=== PATIENT | male | born 1945 | race Caucasian/White ===

== ENCOUNTER 2017-02-22 06:57 | Day surgery (SDC) | payer MEDICARE, OTHER ==
[~2017-02-22] VITALS: Ht 185.4 cm; Wt 109.0 kg
[2017-02-22 07:27] VITALS: BP 133/75; PULSE 76; TEMP 97.5
[2017-02-22] MEDS ORDERED: ZESTRIL 20MG TA20 MG PO (07:44)
[2017-02-22] MEDS ORDERED: ASPIRIN 81M81 MG/TA2 PO (07:45)
[2017-02-22] MEDS ORDERED: VICTOZA6 MG/ML SQ (07:45)
[2017-02-22] MEDS ORDERED: CELEBREX 200MG200 MG PO (07:45)
[2017-02-22] MEDS ORDERED: GLUCOPHAGE500 MG/TAB PO (07:46)
[2017-02-22] MEDS ORDERED: KOMBIGLYZE XR 11 TE1 PO (07:46)
[2017-02-22] MEDS ORDERED: STOOL SOFTENER100 M2 PO (07:47)
[2017-02-22] MEDS ORDERED: PROBIOTIC FORMU1 CAP PO (07:47)
[2017-02-22] MEDS ORDERED: METAMUCIL3.4 GM/DOS PO (07:48)
[2017-02-22] MEDS ORDERED: [UNRECOGNIZED DRUG - OTHER] PO (07:48)
[2017-02-22] MEDS ORDERED: GROUND FLAX SEED PO (07:49)
[2017-02-22] MEDS ORDERED: LEVEMIR100 U/ML SQ (07:50)
[2017-02-22 09:05] VITALS: BP 119/75; PULSE 73; TEMP 97.3
[2017-02-22 09:20] VITALS: BP 118/80; PULSE 70
[2017-02-22 09:35] VITALS: BP 117/74; PULSE 68
[2017-02-22 09:50] VITALS: BP 129/69; PULSE 66
== END 2017-02-22 10:05 | disposition home or self-care (01) ==
LOC: SDCO 06:57
DX: Z86.010 Personal history of colon polyps (principal); K64.0 First degree hemorrhoids
CPT/HCPCS: G0105; OP; J2250; J3010; J7030

== ENCOUNTER → 2018-12-08 | Outpatient (CLI) | payer MEDICARE, OTHER ==
[~2018-12-08] MED LIST: ASPIRIN 81M81 MG/TA2 PO; ASPIRIN E.C. 8181 MG PO; CELEBREX 200MG200 MG PO; GLUCOPHAGE500 MG/TAB PO; GLUCOSAMINE & C1 CA2 PO; GROUND FLAX SEED PO; KOMBIGLYZE; KOMBIGLYZE XR 11 TE1 PO; LEVEMIR100 U/ML SQ; METAMUCIL3.4 GM/DOS PO; PROBIOTIC FORMU1 CAP PO; STOOL SOFTENER100 M2 PO; VICTOZA6 MG/ML SQ; ZESTRIL 20MG TA20 MG PO; [UNRECOGNIZED DRUG - OTHER] PO
== END ==
LOC: SUN.DIA 11-24 10:47
DX: E11.9 Type 2 diabetes mellitus without complications (principal); I10 Essential (primary) hypertension; E66.9 Obesity, unspecified
CPT/HCPCS: G0108

== ENCOUNTER → 2019-01-10 | Outpatient (CLI) | payer MEDICARE, OTHER | LOC: SUN.DIA 11:21 | DX: E11.9 Type 2 diabetes mellitus without complications (principal); I10 Essential (primary) hypertension; E66.9 Obesity, unspecified | CPT/HCPCS: G0108 ==

== ENCOUNTER → 2019-02-14 | Outpatient (CLI) | payer MEDICARE, OTHER | LOC: SUN.DIA 12:35 | DX: E11.9 Type 2 diabetes mellitus without complications (principal); I10 Essential (primary) hypertension; E66.9 Obesity, unspecified | CPT/HCPCS: G0108 ==

== ENCOUNTER 2019-07-01 14:05 | Inpatient (IN) | payer MEDICARE, OTHER ==
[2019-07-01] VITALS (282 sets, daily range): BP systolic 109–123; BP diastolic 68–80; PULSE 91–117; TEMP 97.7–98.1; O2SAT 96–100
[~2019-07-01] VITALS: Ht 185.4 cm; Wt 118.5 kg
[2019-07-01 14:20] LABS: BASO % 0.2 % (0.0-2.0); EOS % 0.2 % (0-4.0); GRAN % 81.3 % (42.2-75.2); HEMOGLOBIN 14.4 g/dl (13.5-18.0); LYMPH # 2.3 (1.2-3.4); LYMPH % 13.6 % (20.0-51.0); MEAN CELL VOLUME 88 fl (80.0-100.0); MEAN CORPUSCULAR HEMOGLOBIN 29 pg (27.0-31.0); MEAN CORPUSCULAR HGB CONC 33 g/dl (33.0-37.0); MEAN PLATELET VOLUME 11.2 fl (7.4-10.4); MONO # 0.5 (0.1-0.6); PLATELET COUNT 389 K/mm3 (130-400); RED BLOOD COUNT 5.01 M/mm3 (4.20-5.60); REDCELL DISTRIBUTION WIDTH-CV 13.1 % (11.5-14.5)
[2019-07-01 14:27] LABS: PROTHROMBIN TIME 11.4 SECONDS (9.7-12.8)
[2019-07-01 14:30] LABS: PARTIAL THROMBOPLASTIN TIME 27.9 SECONDS (26.0-37.0)
[2019-07-01 14:36] LABS: LYMPHOCYTE 17 % (20.0-51.0); MYELOCYTE 1 % (0-0); NEUTROPHILS 80 % (42.0-75.2)
[2019-07-01 14:37] LABS: PLATELET ESTIMATE NORMAL (NORMAL)
[2019-07-01 14:37] LABS: ALBUMIN 4.2 gm/dL (3.5-5.0); BILIRUBIN,TOTAL 0.6 mg/dL (0.0-1.0); TOTAL PROTEIN 7.2 gm/dL (6.4-8.2)
[2019-07-01] MEDS ORDERED: LEVEMIR FLEX100 U/ML SQ (14:53)
[2019-07-01] MEDS ORDERED: NORVASC 5MG5 MG/TAB PO ×2 (14:54→19:28)
[2019-07-01] MEDS ORDERED: FLOMAX 0.40.4 MG/CAP PO ×2 (14:54→19:26)
[2019-07-01] MEDS ORDERED: PRILOSEC 20MG20 MG PO ×2 (14:54→19:29)
[2019-07-01] MEDS ORDERED: GLUCOPHAGE1000 MG PO ×2 (14:54→19:29)
[2019-07-01] MEDS ORDERED: TRULICITY0.75 MG/0. SQ (14:55)
[2019-07-01] MEDS ORDERED: VENTOLIN0.09 MG IH (14:55)
[2019-07-01] MEDS ORDERED: PREDNISONE20 MG PO ×2 (14:56→19:34)
[2019-07-01 14:57] LABS: TROPONIN-I 0.1 ng/mL (0.000-0.035)
[2019-07-01 15:38] LABS: ARTERIAL BLD GAS O2 SATURATION 96.7 % (92-100); ARTERIAL BLD GAS TCO2 CT 16.1; ARTERIAL BLOOD GAS BASE EXCESS -11.3 (-2-2); ARTERIAL BLOOD GAS PCO2 35.5 mmHg (35-45); ARTERIAL BLOOD GAS PO2 103.1 mmHg (80-100); ARTERIAL BLOOD GAS pH 7.25 (7.35-7.45)
--- NOTE | 2019-07-01 15:39 | NUR ---
Report received from SHRADDHA Caruso RN via telephone at this time.
--- NOTE | 2019-07-01 16:15 | NUR ---
Patient transferred to ICU bed 8 via ED stretcher by 2 ER RNs at this time. Patient is able to independently transfer to ICU bed with standby assist with no complications. Patient connected to bedside monitor and personal items placed in cabinet. Full assessment completed. Vital signs are stable at this time. Patient is connected to BiPAP for oxygen support. Dr. Hobbs and Dr. House present at the bedside to assess patient. Orders received, acknowledged, and initiated. Family at bedside, updated on patients condition, and given patient's personal belongings. All patient and family's questions answered by RNs and Physicians at this time. Both patient and family have no complaints or concerns at this time. Bed in lowest position. Call light placed within reach. Side rails up x3.
--- NOTE | 2019-07-01 16:15 | NUR ---
Nitro gtt continued from ER at this time. Refer to titration documentation.
--- NOTE | 2019-07-01 17:30 | NUR ---
Nitro gtt discontinued per Dr. House's order. Dr. Simon made aware and discussed discontinuation with Dr. House.
--- NOTE | 2019-07-01 19:05 | NUR ---
Bumex gtt decreased to 1mg/hr per Dr. House's verbal order.
--- NOTE | 2019-07-01 19:20 | NUR ---
Bedside shift report given to JESSICA Sloan at this time. Patient remains stable. All invasive lines assessed and secured. Medication rates and titrations reviewed with JESSICA Sloan. Patient is in no apparent distress, vital signs are stable. Call light remains within reach. Bed side rails up x3. Bed in lowest position. Family at bedside.
[2019-07-01] MEDS ORDERED: ASPIRIN E.C. 8181 MG PO (19:27)
[2019-07-01] MEDS ORDERED: PRINIVIL20 MG PO (19:30)
[2019-07-01] MEDS ORDERED: VALTREX1 GM PO (19:31)
--- NOTE | 2019-07-01 19:31 | NUR ---
Patient assessment completed and charted at this time, please see documentation for details. Patient resting in bed, and family at bedside. All questions and concerns addressed at this time. Patient is worried, asks "Is my heart going to stop?" Discussed care plan with patient and what we are doing to make him better. Agreeable with plan, will continue to monitor.
[2019-07-01] MEDS ORDERED: CELEBREX 200MG200 MG PO (19:32)
[2019-07-01] MEDS ORDERED: LEVEMIR100 U/ML SQ (19:37)
[2019-07-01 19:57] LABS: COLLECTION METHOD CLEAN CATCH
[2019-07-01 20:05] LABS: PH 5 (5-8); SQUAMOUS EPITHELIAL None Seen /hpf; URINE APPEARANCE Clear; URINE BACTERIA None Seen /hpf; URINE BILIRUBIN Negative (NEGATIVE); URINE BLOOD 1+ (NEGATIVE); URINE COLOR Straw; URINE GLUCOSE Negative (NEGATIVE); URINE KETONE Negative (NEGATIVE); URINE LEUKOCYTE ESTERASE Negative (NEGATIVE); URINE NITRATE Negative (NEGATIVE); URINE PROTEIN(semi-quant) Negative (NEGATIVE); URINE RBC 0-2 /hpf; URINE UROBILINOGEN Negative (NEGATIVE)
[2019-07-01 20:16] LABS: CALCIUM 8.9 mg/dL (8.4-10.2); CREATININE, serum 1.08 (0.66-1.25); MAGNESIUM 1.9 mg/dL (1.6-2.3); POTASSIUM 4.9 mmol/L (3.4-5.0)
[2019-07-01 20:47] LABS: TRICYCLIC ANTIDEPRESS URINE NEGATIVE
[2019-07-01 20:47] LABS: TROPONIN-I 6 HR POST INITIAL 14.6 ng/mL (0.000-0.034)
[2019-07-01 23:31] LABS: CALCIUM 9.2 mg/dL (8.4-10.2); CREATININE, serum 1.03 (0.66-1.25); POTASSIUM 4.5 mmol/L (3.4-5.0)
--- NOTE | 2019-07-01 23:50 | NUR ---
Patient assessment completed and charted at this time, please see documentation for details. Patient resting in bed, worried about condition. Explained to patient what was going on again, will continue to monitor.
[2019-07-02] VITALS (697 sets, daily range): BP systolic 92–117; BP diastolic 61–80; PULSE 81–109; TEMP 97.6–98.2; O2SAT 82–100
[2019-07-02 03:33] LABS: CALCIUM 8.5 mg/dL (8.4-10.2); CREATININE, serum 1.03 (0.66-1.25); POTASSIUM 4.1 mmol/L (3.4-5.0)
[2019-07-02 03:47] LABS: TROPONIN-I 58.8 ng/mL (0.000-0.035)
--- NOTE | 2019-07-02 04:54 | NUR ---
D5NS STARTED AT THIS TIME.
--- NOTE | 2019-07-02 04:55 | NUR ---
Insulin gtt on hold. JAMES Alonzo notified at this time, place gtt on hold for one hour and restart at 3 units/hr
[2019-07-02 05:29] LABS: ARTERIAL BLD GAS O2 SATURATION 97.1 % (92-100); ARTERIAL BLD GAS TCO2 CT 22.3; ARTERIAL BLOOD GAS HCO3 21.3 meq/L (22-26); ARTERIAL BLOOD GAS PCO2 32.4 mmHg (35-45); ARTERIAL BLOOD GAS PO2 95.7 mmHg (80-100); ARTERIAL BLOOD GAS pH 7.44 (7.35-7.45)
--- NOTE | 2019-07-02 07:00 | NUR ---
Report recived from Luther LOPEZ. Medication verififed. 0730 blood sugar done by Luther LOPEZ and drip adjusted by that RN at this time.
[2019-07-02 08:05] LABS: CALCIUM 8.6 mg/dL (8.4-10.2); CREATININE, serum 1.05 (0.66-1.25); POTASSIUM 4.1 mmol/L (3.4-5.0)
[2019-07-02 10:20] LABS: CREATININE, serum 1.18 (0.66-1.25); POTASSIUM 3.9 mmol/L (3.4-5.0)
[2019-07-02 13:10] LABS: HEMATOCRIT 40.1 % (42.0-52.0); HEMOGLOBIN 13.2 g/dl (13.5-18.0); MEAN CELL VOLUME 90 fl (80.0-100.0); MEAN CORPUSCULAR HEMOGLOBIN 30 pg (27.0-31.0); MEAN CORPUSCULAR HGB CONC 33 g/dl (33.0-37.0); MEAN PLATELET VOLUME 11.9 fl (7.4-10.4); PLATELET COUNT 327 K/mm3 (130-400); RED BLOOD COUNT 4.45 M/mm3 (4.20-5.60); REDCELL DISTRIBUTION WIDTH-CV 13.5 % (11.5-14.5)
[2019-07-02 13:38] LABS: INR 1.1 (0.8-3.0)
--- NOTE | 2019-07-02 15:36 | NUR ---
Patient lives at home with his (Kasandra Jones [phone]) in [place], [place] and plans to return home upon recovery. Patient does not have anticipated durable medical equipment needs at this time, his primary care physician is Dr. Ramiro Wilkerson, his pharmacy is [facility], and he does not have advance directives of healthcare completed at this time. Patient's son (Segundo [phone]) is supportive of patient's needs along with his and other family members as needed. No further needs at this time and social services counselor will follow.
[2019-07-02 16:22] LABS: CALCIUM 8.7 mg/dL (8.4-10.2); CREATININE, serum 1.38 (0.66-1.25); POTASSIUM 4.3 mmol/L (3.4-5.0)
--- NOTE | 2019-07-02 19:00 | NUR ---
RECEIVED REPORT FROM JESSICA BOO.
[2019-07-02 19:27] LABS: CALCIUM 8.8 mg/dL (8.4-10.2); CREATININE, serum 1.37 (0.66-1.25)
[2019-07-02 23:32] LABS: CALCIUM 8.8 mg/dL (8.4-10.2); CREATININE, serum 1.26 (0.66-1.25); POTASSIUM 4.1 mmol/L (3.4-5.0)
[2019-07-03] VITALS (420 sets, daily range): BP systolic 104–132; BP diastolic 55–97; PULSE 19–99; TEMP 97.6–98.5; O2SAT 88–100
--- NOTE | 2019-07-03 05:15 | NUR ---
REMOVED BIPAP MASK FROM PATIENT PER HIS REQUEST. ASSISTED PATIENT INTO HIS RECLINER.
[2019-07-03 06:16] LABS: HEMATOCRIT 41.9 % (42.0-52.0); HEMOGLOBIN 14.1 g/dl (13.5-18.0); MEAN CELL VOLUME 88 fl (80.0-100.0); MEAN CORPUSCULAR HEMOGLOBIN 30 pg (27.0-31.0); MEAN CORPUSCULAR HGB CONC 34 g/dl (33.0-37.0); MEAN PLATELET VOLUME 11.8 fl (7.4-10.4); PLATELET COUNT 276 K/mm3 (130-400); RED BLOOD COUNT 4.78 M/mm3 (4.20-5.60); REDCELL DISTRIBUTION WIDTH-CV 13.4 % (11.5-14.5)
[2019-07-03 06:39] LABS: BILIRUBIN,TOTAL 0.6 mg/dL (0.0-1.0); CALCIUM 8.9 mg/dL (8.4-10.2); CREATININE, serum 1.2 (0.66-1.25); POTASSIUM 4.1 mmol/L (3.4-5.0); TOTAL PROTEIN 6.7 gm/dL (6.4-8.2)
[2019-07-03 06:50] LABS: TROPONIN-I 27.8 ng/mL (0.000-0.035)
--- NOTE | 2019-07-03 07:00 | NUR ---
REPORT GIVEN TO JESSICA BOO.
--- NOTE | 2019-07-03 07:00 | NUR ---
Report recived from Leticia LOPEZ. phlebotomy lab assistant in the room prepping for procedure. Family notified and will be here soon.
--- NOTE | 2019-07-03 07:14 | NUR ---
TROPONIN TRENDING DOWN. DID NOT CALL PHYSICIAN WITH MORNING RESULT.
--- NOTE | 2019-07-03 08:17 | NUR ---
ALL MEDICATIONS GIVEN VORB WITH MD. SEE MERGE FOR ALL MEDICATION ADMIN TIMES. SEE MERGE FOR RASS ASSESSMENTS DURING AND POST PROCEDURE. POSITIVE BARBEAU'S TEST IN THE RIGHT WRIST, RADIAL PULSE +1. END TIDAL MONITORING UNABLE TO USE DUE TO USE OF BIPAP WITH PATIENT PER RT DURING PROCEDURE.
--- NOTE | 2019-07-03 09:10 | NUR ---
Returns from wharf laborer after left heart cath without intervention, patient will be tranferring to [facility] for [facility]G. Very anxious, emotional support given at this time. Family at bedside. Right radial TR band in place. No bleeding noted. Pulses present and CMS intact. Denies pain at this time
--- NOTE | 2019-07-03 09:15 | NUR ---
Patient transported to ICU 8 at this time with Zoll in place for monitoring. Patient hooked back up to ICU monitoring equipment. VS stable. Patient denies any pain at this time. Visualized right radial site with JESSICA Kam. TR band remains in place with 12 mls of air in the band. No oozing or hematoma noted at this time. Site is soft and nontender. Cap refill <3 seconds. Discussed importance of wrist restrictions with patient, patient verbalizes understanding. All questions and concerns addressed at this time.
--- NOTE | 2019-07-03 10:58 | NUR ---
Initial visit; Patient and his thanked Operations Intelligence Superintendent for being present at the Primary Teaching Assistant Waiting Room and offering prayer and encouragement to both patient and his .
--- NOTE | 2019-07-03 13:05 | NUR ---
To [facility] via ambulance, report given to Kingsley LEACH.
--- NOTE | 2019-07-03 13:15 | NUR ---
Report called to Nidhi LOPEZ
--- NOTE | 2019-07-03 13:33 | NUR ---
SW attended clincal rounds. Patient will be transferred to [facility] today.
== END 2019-07-03 13:04 | disposition short-term general hospital (02) | DRG 280 ==
LOC: COL.ER 14:05 → ICU 15:52
PROVIDERS: Emergency Medicine; Family Medicine; Internal Medicine Critical Care Medicine; Internal Medicine Interventional Cardiology; Nurse Practitioner Family; ADMIT Family Medicine
PROC: 4A023N7 Measurement of Cardiac Sampling and Pressure, Left Heart, Percutaneous Approach (ICD-10-PCS; principal; 2019-07-03)
PROC: B2111ZZ Fluoroscopy of Multiple Coronary Arteries using Low Osmolar Contrast (ICD-10-PCS; 2019-07-03)
DX: I21.4 Non-ST elevation (NSTEMI) myocardial infarction (principal); J96.01 Acute respiratory failure with hypoxia; J81.0 Acute pulmonary edema; E11.10 Type 2 diabetes mellitus with ketoacidosis without coma; I50.21 Acute systolic (congestive) heart failure; E87.1 Hypo-osmolality and hyponatremia; E87.2 Acidosis; N17.9 Acute kidney failure, unspecified; I11.0 Hypertensive heart disease with heart failure; E11.9 Type 2 diabetes mellitus without complications; E11.65 Type 2 diabetes mellitus with hyperglycemia; D72.829 Elevated white blood cell count, unspecified; N40.0 Benign prostatic hyperplasia without lower urinary tract symptoms; F41.9 Anxiety disorder, unspecified; E66.9 Obesity, unspecified; Z68.34 Body mass index [BMI] 34.0-34.9, adult; Z79.4 Long term (current) use of insulin; Z79.82 Long term (current) use of aspirin; Z79.52 Long term (current) use of systemic steroids; Z87.891 Personal history of nicotine dependence
CPT/HCPCS: 99222; 99223-AI; 99239; J1644; J1815; J1940; J2060; J2250; J2270; J3010; J7030; J7042; Q9967

== ENCOUNTER 2019-07-29 13:36 | Emergency (ER) | payer MEDICARE, OTHER ==
[~2019-07-29] VITALS: Ht 185.4 cm; Wt 110.9 kg
[~2019-07-29 13:36] MED LIST changes: +FLOMAX 0.40.4 MG/CAP PO; +GLUCOPHAGE1000 MG PO; +LEVEMIR FLEX100 U/ML SQ; +NORVASC 5MG5 MG/TAB PO; +PREDNISONE20 MG PO; +PRILOSEC 20MG20 MG PO; +PRINIVIL20 MG PO; +TRULICITY0.75 MG/0. SQ; +VALTREX1 GM PO; +VENTOLIN0.09 MG IH
[2019-07-29 13:51] VITALS: TEMP 97.3
[2019-07-29 16:51] LABS: MEAN CELL VOLUME 88 fl (80.0-100.0); MEAN CORPUSCULAR HEMOGLOBIN 29 pg (27.0-31.0); MEAN CORPUSCULAR HGB CONC 33 g/dl (33.0-37.0); MEAN PLATELET VOLUME 9.7 fl (7.4-10.4); PLATELET COUNT 397 K/mm3 (130-400); REDCELL DISTRIBUTION WIDTH-CV 14.8 % (11.5-14.5)
[2019-07-29] MEDS ORDERED: LASIX 40MG TABL40 MG PO (16:59)
[2019-07-29 17:02] LABS: ALBUMIN 3.3 gm/dL (3.5-5.0); BILIRUBIN,TOTAL 0.6 mg/dL (0.0-1.0); CALCIUM 8.6 mg/dL (8.4-10.2); CREATININE, serum 1.08 (0.66-1.25); POTASSIUM 4.4 mmol/L (3.4-5.0); TOTAL PROTEIN 6.3 gm/dL (6.4-8.2)
[2019-07-29] MEDS ORDERED: LEVEMIR FLEX100 U/ML SQ (17:03)
[2019-07-29] MEDS ORDERED: HUMALOG PEN100 U/ML SQ (17:04)
[2019-07-29] MEDS ORDERED: GLUCOPHAGE1000 MG PO (17:05)
[2019-07-29] MEDS ORDERED: PRINIVIL2.5 MG PO ×2 (17:05)
[2019-07-29] MEDS ORDERED: COREG 6.256.25 MG/TA PO (17:06)
[2019-07-29 17:11] LABS: BAND 1 % (0-10); EOSINOPHIL 1 % (0-4); LYMPHOCYTE 14 % (20.0-51.0); METAMYELOCYTE 2 % (0-0); NEUTROPHILS 78 % (42.0-75.2); PLATELET ESTIMATE NORMAL (NORMAL)
[2019-07-29 18:33] VITALS: BP 107/61; PULSE 83
== END 2019-07-29 18:36 | disposition home or self-care (01) ==
LOC: COL.ER 13:36
PROVIDERS: Emergency Medicine
DX: R60.0 Localized edema (principal); E11.9 Type 2 diabetes mellitus without complications; I25.10 Atherosclerotic heart disease of native coronary artery without angina pectoris; I11.0 Hypertensive heart disease with heart failure; I50.9 Heart failure, unspecified; Z95.1 Presence of aortocoronary bypass graft; Z79.4 Long term (current) use of insulin; Z79.82 Long term (current) use of aspirin
CPT/HCPCS: J1940

== ENCOUNTER 2019-08-21 15:14 | Outpatient (RCR) | payer MEDICARE, OTHER ==
[~2019-08-21 15:14] MED LIST changes: +COREG 6.256.25 MG/TA PO; +HUMALOG PEN100 U/ML SQ; +LASIX 40MG TABL40 MG PO; +PRINIVIL2.5 MG PO
== END 2019-11-07 | disposition home or self-care (01) ==
LOC: COL.CR
DX: Z48.812 Encounter for surgical aftercare following surgery on the circulatory system (principal); Z95.1 Presence of aortocoronary bypass graft

== ENCOUNTER 2019-11-08 14:47 | Outpatient (RCR) | payer MEDICARE, OTHER | END 2019-11-21 | disposition home or self-care (01) | LOC: COL.CR | DX: Z48.812 Encounter for surgical aftercare following surgery on the circulatory system (principal); Z95.1 Presence of aortocoronary bypass graft ==

== ENCOUNTER 2019-11-13 16:09 | Outpatient (RCR) | payer SELFPAY ==
[2020-01-29] MEDS ORDERED: NOVOLOG 100U100 U/M1 SQ (14:40)
[2020-01-29] MEDS ORDERED: SENNA-LAX8.6 MG PO (14:41)
[2020-01-29] MEDS ORDERED: PLAVIX 75MG TAB75 MG PO (14:41)
[2020-01-29] MEDS ORDERED: LIPITOR 40MG TA40 MG PO (14:42)
== END 2020-02-07 | disposition home or self-care (01) ==
LOC: COL.CR
DX: Z02.89 Encounter for other administrative examinations (principal)

== ENCOUNTER 2020-01-29 14:02 | Emergency (ER) | payer OTHER, MEDICARE ==
[~2020-01-29] VITALS: Ht 185.4 cm; Wt 111.4 kg
[2020-01-29 14:10] VITALS: BP 167/74; PULSE 77; TEMP 96.8
[2020-01-29] MEDS ORDERED: NOVOLOG 100U100 U/M1 SQ (14:40)
[2020-01-29] MEDS ORDERED: SENNA-LAX8.6 MG PO (14:41)
[2020-01-29] MEDS ORDERED: PLAVIX 75MG TAB75 MG PO (14:41)
[2020-01-29] MEDS ORDERED: LIPITOR 40MG TA40 MG PO (14:42)
== END 2020-01-29 14:48 | disposition home or self-care (01) ==
LOC: COL.ER 14:02
DX: S70.02XA Contusion of left hip, initial encounter (principal); R40.2410 Glasgow coma scale score 13-15, unspecified time; V63.5XXA Driver of heavy transport vehicle injured in collision with car, pick-up truck or van in traffic accident, initial encounter